=== PATIENT | female | born 1965 ===

== ENCOUNTER 2022-09-12 07:15 | Inpatient (IN) | payer OTHER ==
[~2022-09-12] VITALS: Ht 152.4 cm; Wt 70.8 kg
[2022-09-12] MEDS ORDERED: PRISTIQ ER100 MG PO (08:10)
[2022-09-12] MEDS ORDERED: ABILIFY5 MG PO (08:10)
[2022-09-12] MEDS ORDERED: WELLBUTRIN SR100 MG PO (08:10)
[2022-09-12] MEDS ORDERED: CLONAZEPAM0.5 MG PO (08:11)
[2022-09-16] MEDS ORDERED: NAPR500T14 PO (09:24)
[2022-09-16] MEDS ORDERED: Tylenol #3 PO (09:24)
== END 2022-09-16 12:43 | disposition home or self-care (01) | DRG 743 ==
LOC: O/R 09-15 05:32 → OB/GYN 09-15 07:15
PROVIDERS: ADMIT Obstetrics & Gynecology; ATTEND Obstetrics & Gynecology
PROC: 0UT77ZZ Resection of Bilateral Fallopian Tubes, Via Natural or Artificial Opening (ICD-10-PCS; 2022-09-15)
PROC: 0UT27ZZ Resection of Bilateral Ovaries, Via Natural or Artificial Opening (ICD-10-PCS; 2022-09-15)
PROC: 0JQC0ZZ Repair Pelvic Region Subcutaneous Tissue and Fascia, Open Approach (ICD-10-PCS; 2022-09-15)
PROC: 0USG0ZZ Reposition Vagina, Open Approach (ICD-10-PCS; 2022-09-15)
PROC: 0TJB8ZZ Inspection of Bladder, Via Natural or Artificial Opening Endoscopic (ICD-10-PCS; 2022-09-15)
PROC: 0UT97ZZ Resection of Uterus, Via Natural or Artificial Opening (ICD-10-PCS; principal; 2022-09-15 13:45)
DX: N84.1 Polyp of cervix uteri (principal); N81.11 Cystocele, midline; Z20.822 Contact with and (suspected) exposure to COVID-19; N72 Inflammatory disease of cervix uteri